=== PATIENT | female | born 1980 | race Caucasian/White ===

== ENCOUNTER 2023-10-31 07:18 | Day surgery (SDC) | payer OTHER, SELFPAY ==
[2023-10-12 13:41] VITALS: BMI 26.0
[2023-10-19 08:59] VITALS: BMI 23.6
--- NOTE | 2023-10-30 13:33 | PM.HPGS ---
History of Present Illness History of Present Illness Consent: Risks, benefits, and alternatives have been discussed and questions answered. Patient agrees to proceed with procedure. Chief complaint: Family history of colon polyps Narrative: Anette Valerio is a 43 year old female referred for colon cancer screening. She has a family history of polyps. Review of Systems Review of Systems: All systems reviewed & are unremarkable except as noted in HPI and below PMFSH Past Medical History Medical History Anemia Anxiety Social History Social History Smoking status: Former smoker Tobacco type: cigarettes Alcohol intake: current Drinks per week: 8 Substance use: current Substance use type: marijuana Other substance usage details: 2X week Living arrangements: with family Spiritual care concerns: No Meds Home Medications and Allergies Home Medications Medication Instructions Recorded Confirmed Type No Home Medications 10/19/23 10/31/23 History Allergies Allergy/AdvReac Type Severity Reaction Status Date / Time No Known Allergies Allergy Mild Verified 10/31/23 07:55 Exam Resp: Auscultation: clear to auscultation bilaterally Cardio: Rate: regular rate Rhythm: regular rhythm GI: GI Palp: Yes Soft to palpation and No Tenderness to palpation present (GI) Assessment and Plan Assessment and plan (1) Family history of colonic polyps: Code(s): Z83.719 - Family history of colon polyps, unspecified Status: Acute Assessment and Plan: Colonoscopy with possible biopsy or polypectomy or cautery or injection of substances.
--- NOTE | 2023-10-31 06:48 | P.PNAN_ITS ---
Anes - Initial Pre Proc Eval Procedure: Operation Date: 10/31/23 09:00 Proposed Procedures p Diagnostic Colonoscopy - Don Sanon MD Date/Time: 10/31/23 06:48 Surgeon: Don Sanon MD Pre Op Diagnosis: Family history of colon polyps Patient Data Age: 43 Gender: F Height: 1.7 m Weight: 68.3 kg Allergies Allergy/AdvReac Type Severity Reaction Status Date / Time No Known Allergies Allergy Mild Verified 10/31/23 07:55 Home Medications Medication Instructions Recorded Confirmed Type No Home Medications 10/19/23 10/31/23 History Patient hx anesthesia problems: none Family hx anesthesia problems: none Results Review: All pre-operative results and documents have been reviewed as part of the pre- operative evaluation. [facility] Past Medical History Medical History Anemia Anxiety Social History Social History Smoking status: Former smoker Tobacco type: cigarettes Alcohol intake: current Drinks per week: 8 Substance use: current Substance use type: marijuana Other substance usage details: 2X week Living arrangements: with family Spiritual care concerns: No Anes - Eval Final PreProcedure Day of Procedure 10/31/23 06:48 Patient weight: normal Heart: regular rate and rhythm Lungs: clear to auscultation and normal air movement Airway: Mallampati scale class II Neurological: alert and oriented Last oral intake: >/= 8 hours ASA classification: II Emergent: no Anesthetic plan: proceed Anesthesia type and monitoring: general GIVS and standard monitoring Results Review: All pre-operative results and documents have been reviewed as part of the pre- operative evaluation. Informed Consent: The patient's anesthetic plan and its attendant risks and benefits were discussed with the patient/family/POA. Questions were solicited and answers provided to the satisfaction of the patient/family/POA.
[2023-10-31 07:59] VITALS: BP 113/79; PULSE 77; RESP 18; TEMP 37.1; O2SAT 100
[2023-10-31] MEDS: LACTATED RINGERS 1,000 ML 150 ML IV CONT (08:16)
[2023-10-31] MEDS: SIMETHICONE ORAL SUSPENSION 20 MG/0.3 ML 30 ML BOTTLE 0.6 ML IRRIGATION (08:25)
[2023-10-31 08:35] VITALS: BP 89/57; PULSE 90; RESP 16; O2SAT 97
[2023-10-31 08:45] VITALS: BP 95/58; PULSE 74; RESP 16; O2SAT 99
[2023-10-31 08:55] VITALS: BP 95/63; PULSE 68; RESP 16; O2SAT 100
--- NOTE | 2023-10-31 11:06 | WPDANESPN ---
Anes - Prog Note Post-Op Date/Time: 10/31/23 11:06 Cardiovascular status: normal Respiratory status: normal Airway patency: baseline Mental status: baseline Post-Op hydration status: normal Vital Signs: Last Vital Signs Temp 37.1 C 10/31/23 07:59 Pulse 68 10/31/23 08:55 Resp 16 10/31/23 08:55 BP 95/63 L 10/31/23 08:55 Pulse Ox 100 10/31/23 08:55 O2 Del Method Room Air 10/31/23 08:55 Pain Score (VAS): 0 I/O: Intake & Output 10/30/23 10/31/23 10/31/23 23:59 07:59 15:59 Intake Total 350 Balance 350 Post-procedural complaints: none Patient Feedback: Patient satisfied with anesthetic care. Other Findings: Patient vital signs back to baseline. Patient denies nausea and vomiting. Patient's pain under control. Patient OK for discharge.
== END 2023-10-31 09:01 | disposition home or self-care (01) ==
PROVIDERS: PCP Internal Medicine; Visit Provider Internal Medicine Gastroenterology
PROC: 0DJD8ZZ Inspection of Lower Intestinal Tract, Via Natural or Artificial Opening Endoscopic (ICD-10-PCS; CPT 45378; principal; 2023-10-31 09:00)
DX: Z12.11 Encounter for screening for malignant neoplasm of colon (principal); K57.30 Diverticulosis of large intestine without perforation or abscess without bleeding
CPT/HCPCS: 45378

== ENCOUNTER 2025-03-26 01:48 | Day surgery (SDC) | payer OTHER, SELFPAY ==
[2025-03-19 16:32] VITALS: BMI 25.5
--- NOTE | 2025-03-19 16:44 | SUR.PREOP ---
[facility] has started construction of its new state of the art ER which will open Spring 2026. With this, we anticipate parking may be a challenge for some our surgical patients and families. Parking spaces are limited but are available for all Surgical, obstetrics, and ER patients sharing this lot. If you arrive and find you are having a hard time finding a parking space, please note that we understand the challenges, please drive around the hospital and park near Hospital Entrance 1. When you enter this entrance, you can ask a volunteer to direct or take you back to the surgical waiting area to check in. We appreciate everyone?s understanding of these expected challenges while we build for your future. Report to the Outpatient Waiting Room, entrance under the green pavilion located off [address], at time __1130am on date __03/26/25 . Planned Procedure Time: _130pm .? Time changes happen often and if your time is changed the preop area will call you the afternoon before. - You and your visitor will be asked to self-screen and do not enter if you have any COVID symptoms. Please call surgeon if you need to reschedule. - A mask is optional within the hospital at this time. Patients may have clear liquids (water, carbonated beverages, clear teas, apple juice) until 3 hours prior to surgery with a maximum of 20 ounces. - No food from midnight until time of surgery and no smoking, or chewing tobacco (or any form of nicotine). No chewing gum, candy or mints. Take only the following medications with a SIP of water on the morning of surgery: . DO NOT STOP ANY OF YOUR OTHER PRESCRIPTION MEDICATIONS PRIOR TO SURGERY EXCEPT THE FOLLOWING Hold all vitamins and supplements for 3 days per anesthesiologist. Medications to discontinue per physician . Date to take last dose . Please no make-up, nail scottish, hairspray, perfume, deodorant, or body powder the day of surgery.? No jewelry (including any body piercings) or valuables the day of surgery, leave them at home.? Please take a shower or bath the night before, or the morning of, surgery with an antibacterial soap.? Wear comfortable, loose fitting clothing.? - Jewelry must be removed prior to entering the operating room.? Rings and piercings that are not removed may be cut off. - The hospital will not accept responsibility for valuables.? - Please leave all valuables, including medications, at home the day of surgery. If you are going home after surgery, a licensed bulk driver must drive you home.? - NO public transportation without another adult if you receive anesthesia. - We recommend that an adult stay with you for 24 hours following discharge. - We also recommend that you do not drive, make important decision, drink alcoholic beverages, or take any drugs that were not prescribed by your health care provider for at least 24 hours after your discharge time. Follow any additional instructions given to you from your surgeon. Telephone instructions given to __Anette and asked if any additional questions and then verbalized understanding. Patient advised to call surgeon office or pre surgery nurse liaison [phone] if any additional questions.
[2025-03-26] VITALS (9 sets, daily range): BP systolic 109–117; BP diastolic 69–80; PULSE 51–74; RESP 12–16; TEMP 36.5–36.9; O2SAT 96–100; BMI 26.0
--- OUTSIDE RECORDS SUMMARY | 2025-03-26 01:52 | XMS_ITS | Clinical Summary ---
Author Organization [facility] Address [address] [place] [address] Care Team Providers Care Tour Manager Name Role Phone Ismael Macario MD Primary Care Provider + Miguel Parker MD Unavailable [phone] Allergies No known active allergies Medications rimegepant sulfate (NURTEC ODT ORAL) Take by mouth Active methylPREDNISol one (Medrol, Olivier,) 4 mg DosepackIndicat ions:Sore throat follow package directions 21 tablet 4 Active Active Problems Problem Noted Date Diagnosed Date Sore throat 05/11/2017 Assessment & Plan (05/11/2017 3:24 PM BENCH MOLDER APPRENTICE): Rapid strep negative. Throat culture obtained. Given the appearance of her posterior pharynx will begin empiric antibiotic. Should throat culture returned negative she will discontinue. Patient has been instructed to contact the office if she has not heard from us regarding results within 3 days of having testing completed. Humidification, fluids, and rest were recommended. Patient was instructed to take antibiotic as directed. Patient was encouraged to take antibiotic with food. I have also recommended daily probiotic, yogurt or capsule, while on the antibiotic. Vaginal candidiasis 05/11/2017 Assessment & Plan (05/11/2017 3:33 PM BENCH MOLDER APPRENTICE): History of yeast infections associated with antibiotics. Empiric Diflucan was submitted to the pharmacy for p.r.n. use. Ingrown hair 05/11/2017 Assessment & Plan (05/11/2017 3:32 PM BENCH MOLDER APPRENTICE): Genital region. No signs or symptoms of secondary infection. Patient shaves frequently. She is aware she will be prone to ingrown hairs with shaving. With recurrence would recommend trimming in lieu of shaving. Dysuria 03/14/2017 Assessment & Plan (03/14/2017 11:42 AM CDT): Based upon urine dip in office today were going to start treating her with Bactrim DS 1 tab b.i.d. for 3 day course as that should be enough to the adequately treat UTI without evidence of cystitis. Advised patient will follow up with her next 2-3 business days regarding the urinalysis results and certainly change our management if indicated. In the interim however advised to push fluids, and follow up with us any worsening of symptoms or persistent symptoms occur after 24 hours antibiotics. BMI 26.0-26.9,adult 03/14/2017 Assessment & Plan (03/14/2017 11:41 AM CDT): Recommended patient to continue to increase heart healthy diet with adequate fruits, vegetables, and plenty of water along with mild-moderate daily exercise as tolerated. Anxiety 01/02/2014 Overview (09/16/2016): Anxiety Back pain 10/26/2013 Overview (09/15/2016): Back pain Resolved Problems Problem Noted Date Diagnosed Date Resolved Date Acute sinusitis 06/24/2013 02/28/2017 Overview (09/15/2016): ACUTE SINUSITIS NOS Immunizations Immunization Administration Dates Next Due Influenza, Quadrivalent, Spl it, Preservative Free, Intramuscular 02/28/2017 Influenza, Trivalent, IM (MDV) 04/07/2009 Influenza, Unspecified 04/06/2017 Tdap 10/06/2009 Surgical History Surgery Date Site/Laterality Comments AUGMENTATION MAMMAPLASTY 06/12/2012 - 06/11/2013 Bilater al Medical History Medical History Date Comments Hx Other Medical 01-BENCH MOLDER APPRENTICE Smoking Family History Medical History Relation Name Comments Depression Brother 2 Depression; Other Brother 3 Alive and well; ages: 39 35 31 Hypertension Father Hypertension; Other Father Alive and well; Throat cancer Father Cancer -throat ; Breast cancer Maternal Grandmother Coronary artery disease Maternal Grandmother Coronary artery disease; Breast cancer Maternal cousin Other Mother Alive and well; Ovarian cancer Neg Hx Thyroid cancer Neg Hx Relation Name Status Comments Brother 1 Alive Brother 2 Alive Brother 3 Alive Father Alive Maternal Grandmother Maternal cousin Mother Alive Social History Tobacco Use Types Packs/Day Years Used Date Smoking Tobacco: Former Smokeless Tobacco: Never Tobacco Cessation:Counseling Given: Not Answered Alcohol Use Standard Drinks/Week Comments Yes 0 (1 standard drink = 0.6 oz pur e alcohol) 2 nights a week. 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 Not on file Not on file Not on file Obstetrics History Para Term AB IAB SAB Ectopic Multiple Livin g Live Births 3 3 3 Date Outcome GA Total Labor Labor/2nd/3rd Weight Sex Type Anes PTL Mary Carmen A1 A5 Name Clin Term Term Term Last Filed Vital Signs Vital Sign Reading Time Taken Comments Blood Pressure 122/70 05/29/2024 10:37 AM BENCH MOLDER APPRENTICE Pulse 108 05/29/2024 10:37 AM BENCH MOLDER APPRENTICE Temperature 36.6 C (97.9 F) 05/29/2024 10:37 AM BENCH MOLDER APPRENTICE Respiratory Rate 18 05/29/2024 10:37 AM BENCH MOLDER APPRENTICE Oxygen Saturation 99% 05/29/2024 10:37 AM BENCH MOLDER APPRENTICE Inhaled Oxygen Concentration - - Weight 68.9 kg (152 lb) 05/29/2024 10:37 AM BENCH MOLDER APPRENTICE Height 167.6 cm (5' 6) 05/29/2024 10:37 AM BENCH MOLDER APPRENTICE Body Mass Index 24.53 05/29/2024 10:37 AM BENCH MOLDER APPRENTICE Plan of Treatment Health Maintenance Due Date Last Done Comments Cervical Cancer Screening 1980 Colon Cancer Screening-Colonoscopy 1980 Hepatitis C Screening 1980 Varicella Vaccines (1 of 2 - 13+ 2-dose series) 09/13/1992 Hepatitis B Screening 09/13/1997 HPV Vaccines (1 - 3-dose SCDM series) 09/13/2006 Regular Well Visit/Exam 18-64 02/28/2018 02/28/2017 Depression Screening 05/11/2018 05/11/2017, 03/14/2017, 02/28/2017, Additional history exists DTaP/Tdap/Td Vaccine (2 - Td or Tdap) 10/07/2019 10/06/2009 Breast Cancer Screening-Mammogram 06/14/2023 06/14/2022 Influenza Vaccine (#1) 2025 7, 02/28/2017, 04/07/2009 Pneumococcal vaccine <65 Aged Out No longer eligible based on patient's age to complete this topic Procedures Procedure Name Priority Date/Time Associated Diagnosis Comments DIAGNOSTIC MAMMOGRAM BILATERAL W CADE W IMPLANTS Schedule Routine, Read Routine (OP Routine) 06/14/2022 12:38 PM BENCH MOLDER APPRENTICE Breast implant status from Last 3 Months or Most Recently Relevant to Health Maintenance Results * Diagnostic Mammogram Bilateral W Cade W Implants (06/14/2022 12:38 PM BENCH MOLDER APPRENTICE) Anatomical Region Laterality Modality Breast Bilateral Mammography 06/14/2022 1:22 PM BENCH MOLDER APPRENTICE Impressions 06/14/2022 1:22 PM BENCH MOLDER APPRENTICE 1. No findings identified on mammogram or sonogram to account for patient's focal tenderness at the 10 o'clock position of the right breast 10 cm from the nipple. Continued clinical follow-up is recommended. Any further management at this time should be based on clinical assessment. 2. No new suspicious findings in either breast mammogram. Continued monthly breast self-examination is recommended, and annual bilateral screening mammography in 12 months, BI-RADS: 1 - Negative. I discussed the findings and recommendations with the patient at time of the examination. Electronically signed by: ANTHONY Anne 06/14/2022 1:22 PM BENCH MOLDER APPRENTICE EXAMINATION: DIAGNOSTIC MAMMOGRAM BILATERAL W CADE W IMPLANTS, US BREAST RIGHT LIMITED ORDERING HEALTHCARE PROVIDER: ISMAEL MACARIO HISTORY: 41-year-old woman comes in today for evaluation of intermittent tenderness in the outer right breast for 5-6 months. Screening of the left breast. COMPARISON: 08/04/2020. TECHNIQUE: CC and MLO views of both breasts, including implant-displaced views, were obtained with digital technique using digital breast tomosynthesis with C view. Computer aided detection was utilized. Targeted sonographic examination of the right breast was performed real-time grayscale images and color Doppler. FINDINGS: MAMMOGRAPHIC FINDINGS: The breast tissue is extremely dense, which lowers the sensitivity of mammography. Bilateral subpectoral silicone breast implants are redemonstrated and appear stable. New suspicious findings are identified in either breast. SONOGRAPHIC FINDINGS: Targeted sonographic examination of the right breast is performed in the area of reported tenderness, corresponding to the 10 o'clock position 10 cm from the nipple. At this level only benign fibroglandular tissue is seen without suspicious solid or cystic masses. Ismael Macario MD IMG MAMMO PROCEDURES Fin al Result from Last 3 Months or Most Recently Relevant to Health Maintenance Insurance [facility] HMO/PPO Address: [place] [address] [facility] HMO/PPO Address: [place] [id number] [place] [address] [facility] CHOICE [facility] HMO/PPO Address: [facility] [address] [place] [address] Care Teams Tour Manager Relationship Specialty Start Date End Date Ismael Macario MD [address] [place] [address] PCP - General 07/23/21 Miguel Parker MD [address] [address] Referring Physician Obstetrics and Gynecology 06/14/22
--- NOTE | 2025-03-26 09:16 | P.HP_ITS ---
H&P: HPI History of Present Illness Date/Time: 03/26/25 09:16 Chief Complaint: Desired sterility Narrative: 44 y/o who does not desire future childbearing. She has monthly menses with light flow. She is interested in tubal sterilization. Review of Systems Review of Systems: All systems reviewed & are unremarkable except as noted in HPI and below PMFSH Past Medical History Medical History Anemia Anxiety Surgical History Surgical History H/O breast augmentation Family History Family History Father Hypertension Grandparent Breast cancer Diabetes mellitus Brain cancer Mother Breast cancer Social History Social History Years smoked: 15 Smoking status: Former smoker Tobacco type: cigarettes Alcohol intake: current Drinks per week: 4 Substance use: current Substance use type: marijuana Other substance usage details: x2wk smoking and gummies Living arrangements: with family Spiritual care concerns: Yes Meds Home Medications and Allergies Home Medications ?Medication ?Instructions ?Recorded ?Confirmed ?Type No Home Medications 10/19/23 03/19/25 H istory Allergies Allergy/AdvReac Type Severity Reaction Status Date / Time No Known Allergies Allergy Mild Verified 03/19/25 16:31 Exam Const: Orientation/consciousness: patient oriented x3 Other: Well-developed, well-nourished female in no acute distress. Neck: Thyroid: thyroid normal Lymphatic: no lymphadenopathy noted (in neck, axilla or inguinal nodes) Resp: Effort & Inspection: normal respiratory effort Auscultation: clear to auscultation bilaterally Cardio: Rate: regular rate Rhythm: regular rhythm Heart sounds: S1 normal heart sound present and S2 normal heart sound present GI: Other: ABD: Soft, nontender, nondistended. No guarding or rebound tenderness. No hepatosplenomegaly. : General: Yes no CVA tenderness Other: External genitalia: normal female hair distribution, without lesion. Urethral meatus: no lesion, non prolapsed. Bladder: no mass, nontender Vagina: well-estrogenized, without lesion or discharge. No cystocele or rectocele. Cervix: no lesion or discharge. Uterus: small, anteverted, freely mobile, nontender Adnexa: no mass or tenderness. Anus/perineum: no lesions, nontender Back/Spine/Pelvis: Back: no CVA tenderness Skin: General skin exam: normal color and no rashes or lesions noted Neuro: General: patient oriented x3 Extrem: Other: Extremities: nontender with no edema Psych: Mental Status: mental status grossly normal Affect: normal affect Assessment and Plan Assessment and plan (1) Unwanted fertility: Code(s): Z30.09 - Encounter for other general counseling and advice on contraception Status: Acute Assessment and Plan: A: Desired sterility. P: She understands there are temporary methods of contraception available to her. She understands that there are nonsurgical options as well as surgical options. She understands that bilateral salpingectomy will render her permanently sterile. She understands that there is a failure rate associated with tubal sterilization, as well as an inherent ectopic gestation risk. Furthermore, she understands risks of surgery to include risks of anesthesia, risks of pain, infection, bleeding, blood products, thromboembolic phenomena and damage to adjacent structures such as bowel, bladder, ureters, blood vessels and nerves. She understands all these risks and elects to proceed with laparoscopic bilateral salpingectomy.
[2025-03-26 11:44] LABS: BEDSIDEPREGUCG Negative (Negative)
[2025-03-26 11:48] LABS: BEDSIDEPREGUCG Negative (Negative)
--- NOTE | 2025-03-26 11:58 | WPDHPUPDATE1 ---
History and Physical Update Update Date/Time: 03/26/25 11:58 History and Physical has been reviewed, including an updated exam of the patient. There are NO changes in the patient's condition. Risks, benefits, and alternatives have been discussed and questions answered. Patient agrees to proceed with procedure.
[2025-03-26] MEDS: ACETAMINOPHEN 500 MG TABLET 1000 MG PO (12:00)
[2025-03-26] MEDS: LACTATED RINGERS 1,000 ML 30 ML IV CONT (12:58)
[2025-03-26] MEDS: KETOROLAC 15 MG/ML VIAL (*BKC) IV PUSH (12:59)
--- NOTE | 2025-03-26 13:30 | P.PNAN_ITS ---
Anes - Initial Pre Proc Eval Procedure: Operation Date: 03/26/25 13:30 Proposed Procedures p Laparoscopic Bilateral Salpingectomy - Miguel Parker MD Date/Time: 03/26/25 13:30 Surgeon: Miguel Parker MD Pre Op Diagnosis: Desire Sterilization Patient Data Age: 44 Gender: F Height: 1.68 m Weight: 73.3 kg Last Vital Signs Temp 36.9 C 03/26/25 12:52 Pulse 72 03/26/25 12:52 BP 115/77 03/26/25 12:52 Pulse Ox 100 03/26/25 12:52 O2 Del Method Room Air 03/26/25 12:52 Allergies Allergy/AdvReac Type Severity Reaction Status Date / Time No Known Allergies Allergy Mild Verified 03/26/25 11:39 Home Medications ?Medication ?Instructions ?Recorded ?Confirmed ?Type No Home Medications 10/19/23 03/19/25 H istory Laboratory Tests 03/26/25 03/26/25 11:41 11:46 POC Urine HCG, Qual Negative Negative (Negative) (Negative) Patient hx anesthesia problems: none Family hx anesthesia problems: none Results Review: All pre-operative results and documents have been reviewed as part of the pre- operative evaluation. [facility] Past Medical History Medical History Anemia Anxiety Surgical History Surgical History H/O breast augmentation Family History Family History Father Hypertension Grandparent Breast cancer Diabetes mellitus Brain cancer Mother Breast cancer Social History Social History Years smoked: 15 Smoking status: Former smoker Tobacco type: cigarettes Alcohol intake: current Drinks per week: 4 Substance use: current Substance use type: marijuana Other substance usage details: x2wk smoking and gummies Living arrangements: with family Spiritual care concerns: Yes Anes - Eval Final PreProcedure Day of Procedure 03/26/25 13:30 Patient weight: overweight Heart: regular rate and rhythm Lungs: clear to auscultation Airway: Mallampati scale class II Neurological: alert and oriented Last oral intake: >/= 8 hours ASA classification: II Emergent: no Anesthetic plan: proceed Anesthesia type and monitoring: general ETT and standard monitoring Results Review: All pre-operative results and documents have been reviewed as part of the pre- operative evaluation. Informed Consent: The patient's anesthetic plan and its attendant risks and benefits were discussed with the patient/family/POA. Questions were solicited and answers provided to the satisfaction of the patient/family/POA.
--- NOTE | 2025-03-26 14:04 | S_PTH ---
PATIENT: Anette Valerio LOC: [facility] U#:[id number] AGE/SX: 44/F ROOM: RE03/26/[address]: Miguel Parker MD : 1980 BED: DIS: 03/26/2025 SPEC #: [id number] RECD: 03/27/25 07:48 STATUS: SHAYY REQ #: [id number] AUDRA: 03/26/25 14:[address]: Miguel Parker DEPT: [facility] Surgical RECD BY: Diana Escobar Tissues: A - Fallopian Tube Bilateral Procedures: Gross and Microscopic Level 2 Hematoxylin and Eosin Stain
--- NOTE | 2025-03-26 14:12 | W.PM.PROC2 ---
Procedure Note - Detailed Date of Procedure 03/26/25 Pre-op Diagnosis Desired Sterilization Post-op Diagnosis Same Procedure Performed Laparoscopic bilateral salpingectomy Surgeon Miguel Parker MD Anesthesia General Findings Normal-appearing RUQ anatomy, vermiform appendix, uterus, bilateral Fallopian tubes, bilateral ovaries, anterior and posterior cul de sac, and bilateral round and uterosacral ligaments. Description of Procedure The patient was taken to the operating room where general endotracheal anesthesia was administered. She was prepared and draped in the usual sterile fashion in dorsal lithotomy position. The bladder was drained with a red rubber catheter. A sterile speculum was placed into the vagina. The anterior lip of the cervix was grasped with a single-tooth tenaculum. The acorn uterine manipulator was placed. The speculum was withdrawn. Gloves were changed and attention was turned the abdomen. An infraumbilical skin incision was made with a scalpel. The abdomen was tented and a 5mm bladeless trocar was advanced under direct laparoscopic visualization. Pneumoperitoneum was administered using carbon dioxide gas. A survey of the pelvis and abdomen revealed the findings noted above. An additional 5 mm incision was made in the midline above the pubic symphysis, and an 8 mm incision in the left lower quadrant, and ports were advanced using bladeless trocars under direct laparoscopic visualization. The Fallopian tube on the right side was grasped and elevated and dissected off the ovary using the Ligasure. The tube was then amputated from the uterus and passed off to be sent to pathology. The left tube was similarly dissected free and excised. Hemostasis was excellent. The ports were withdrawn. The gas was allowed to escape. The skin incisions were reapproximated using interrupted subcuticular sutures of 4 0 Vicryl. Dermaflex was applied externally. The vaginal instrumentation was withdrawn and hemostasis was excellent here as well. Sponge, lap, needle and instrument counts were correct. The patient was awakened and taken to recovery room in stable condition. I was present and scrubbed through the entire procedure. Implants None Estimated Blood Loss 5 Drains No Packing No Pathology Yes (Bilateral Fallopian tubes) Complications None Condition Stable Disposition PACU [facility] Billing Surgery - Charge Forward: Surgery Billing
[2025-03-26] MEDS: fentaNYL CITRATE INJ (*CRX) 100 MCG/2 ML VIAL 25 MCG IV PUSH ×3 (14:50→15:12)
[2025-03-26] MEDS: oxyCODONE HCL (*CRX) 5 MG TAB IR PO (15:47)
== END 2025-03-26 16:32 | disposition home or self-care (01) ==
PROVIDERS: Visit Provider Obstetrics & Gynecology
PROC: (CPT 49320; principal; 2025-03-26 13:30)
DX: Z30.2 Encounter for sterilization (principal); N83.8 Other noninflammatory disorders of ovary, fallopian tube and broad ligament; G89.18 Other acute postprocedural pain; D64.9 Anemia, unspecified; F41.9 Anxiety disorder, unspecified; F12.90 Cannabis use, unspecified, uncomplicated; Z98.890 Other specified postprocedural states; Z87.891 Personal history of nicotine dependence; Z80.3 Family history of malignant neoplasm of breast
CPT/HCPCS: 58661; 88302; A9270; J1100; J1885; J2003; J2250; J2405; J2704; J3010; J7120